=== PATIENT | female | born 1980 | race Caucasian/White ===

== ENCOUNTER 2017-05-08 09:35 | Emergency (ER) | payer OTHER ==
[~2017-05-08] VITALS: Ht 160 cm; Wt 50.8 kg
[2017-05-08] MEDS ORDERED: PRENATAL + DHA1 EAC1 (09:45)
== END 2017-05-08 12:48 | disposition home or self-care (01) ==
LOC: ER 09:35
DX: O26.891 Other specified pregnancy related conditions, first trimester (principal); R10.2 Pelvic and perineal pain; Z34.81 Encounter for supervision of other normal pregnancy, first trimester

== ENCOUNTER 2017-06-09 18:25 | Emergency (ER) | payer OTHER ==
[~2017-06-09] VITALS: Ht 160 cm; Wt 50.8 kg
[~2017-06-09 18:25] MED LIST: PRENATAL + DHA1 EAC1
== END 2017-06-09 23:10 | disposition home or self-care (01) ==
LOC: ER 18:25
DX: J01.00 Acute maxillary sinusitis, unspecified (principal)

== ENCOUNTER 2017-10-04 16:17 | Outpatient (CLI) | payer OTHER | END 2017-10-05 13:55 | disposition home or self-care (01) | LOC: OBS/DEL 16:17 | DX: O26.893 Other specified pregnancy related conditions, third trimester (principal); R10.2 Pelvic and perineal pain; Z34.83 Encounter for supervision of other normal pregnancy, third trimester ==

== ENCOUNTER 2017-10-13 11:51 | Inpatient (IN) | payer OTHER ==
[~2017-10-13] VITALS: Ht 160 cm; Wt 58.5 kg
== END 2017-10-19 12:29 | disposition home or self-care (01) | DRG 775 ==
LOC: LDR 11:51 → OB/GYN 10-14 10:31
PROC: 10E0XZZ Delivery of Products of Conception, External Approach (ICD-10-PCS; principal; 2017-10-17)
PROC: 3E0P7VZ Introduction of Hormone into Female Reproductive, Via Natural or Artificial Opening (ICD-10-PCS; 2017-10-17)
PROC: 3E033VJ Introduction of Other Hormone into Peripheral Vein, Percutaneous Approach (ICD-10-PCS; 2017-10-17)
PROC: 4A033R1 Measurement of Arterial Saturation, Peripheral, Percutaneous Approach (ICD-10-PCS; 2017-10-17)
PROC: 4A1HXCZ Monitoring of Products of Conception, Cardiac Rate, External Approach (ICD-10-PCS; 2017-10-17)
DX: O41.03X0 Oligohydramnios, third trimester, not applicable or unspecified (principal); Z3A.36 36 weeks gestation of pregnancy; Z37.0 Single live birth